=== PATIENT | female | born 1990 | race Hispanic/Latino ===

== ENCOUNTER 2019-09-16 02:29 | Emergency (ER) | payer OTHER ==
[2019-09-16] MEDS ORDERED: HYOSCYAMINE SULFATE 0.125 MG TAB.SUBL SL ONE (03:05)
[2019-09-16] MEDS ORDERED: ONDANSETRON ODT 4 MG TAB ONE (03:06)
== END 2019-09-16 03:27 | disposition home or self-care (01) ==
LOC: EDH 02:29
DX: B34.9 Viral infection, unspecified (principal); R11.2 Nausea with vomiting, unspecified; J98.9 Respiratory disorder, unspecified; R19.7 Diarrhea, unspecified